=== PATIENT | male | born 1970 | race Hispanic/Latino ===

== ENCOUNTER → 2020-09-12 | Outpatient (CLI) | payer MEDICARE | END | disposition home or self-care (01) | LOC: RAH 14:14 | PROVIDERS: ATTEND Family Medicine | DX: M79.604 Pain in right leg (principal); F71 Moderate intellectual disabilities; F25.0 Schizoaffective disorder, bipolar type; E03.9 Hypothyroidism, unspecified; E66.8 Other obesity; F70 Mild intellectual disabilities; F84.0 Autistic disorder | CPT/HCPCS: 93926; 93971 ==